=== PATIENT | male | born 1965 | race Caucasian/White ===

== ENCOUNTER 2024-11-20 15:02 | Emergency (ER) | payer OTHER ==
[~2024-11-20] VITALS: Ht 175.3 cm; Wt 84.4 kg
[2024-11-20] MEDS ORDERED: SODIUM CHLORIDE 0.9% 1,000 ML IV PRN (17:45)
[2024-11-20 17:51] LABS: BASOPHILS 0.5 % (0-2); EOSINOPHILS 0.4 % (0-6); HEMATOCRIT 47.3 % (35.0-50.0); HEMOGLOBIN 16.3 g/dL (12.0-18.0); LYMPHOCYTES 18.6 % (24-44); MCH 31.5 (27-36); MCHC 34.5 g/dl (30-36); MCV 91.3 fl (81-99); MONOCYTES 11.1 % (0-12); NEUTROPHILS 69.4 % (39-80); PLATELET COUNT 225 K/uL (140-440); RBC 5.17 M/ul (4.3-5.7); RDW 13.2 (10.5-15.0)
[2024-11-20 18:03] LABS: INR 1.09 (0.80-1.30); PROTIME 14.1 Sec (11.2-14.2)
[2024-11-20 18:05] LABS: PARTIAL THROMBOPLASTIN TIME 25.7 Sec (22.9-41.3)
[2024-11-20 18:11] LABS: ALBUMIN/GLOBULIN RATIO 1.05 (1.1-2.4); ALCOHOL, MEDICAL <3 ng/dL (<3); ALKALINE PHOSPHATASE 86 U/L (46-116); ALT (SGPT) 27 U/L (14-59); ANION GAP 12.1 (7-21); AST (SGOT) 30 U/L (15-37); BILIRUBIN, TOTAL 3.2 ng/dL (0.2-1.0); BUN/CREATININE RATIO 17.03 (6.0-28.6); CALCIUM 9.7 mg/dL (8.5-10.1); CARBON DIOXIDE 29 mmol/L (21-32); CHLORIDE 103 mmol/L (98-107); CREATININE, SERUM 1.35 mg/dL (0.70-1.30); GLOMERULAR FILTRATION RATE,EST 60 mL/min (>60); POTASSIUM 4.1 mmol/L (3.5-5.1); PROTEIN, TOTAL 7.8 g/dL (6.4-8.2); UREA NITROGEN 23 mg/dL (7-18)
[2024-11-20 20:23] VITALS: BP 125/80
--- NOTE | 2024-11-22 18:37 | EKG ---
[facility] [address] [place] [address] Signed Normal sinus rhythm Possible Right ventricular hypertrophy Abnormal ECG No previous ECGs available Confirmed by Guerrero Back MD ([id number]) on 11/22/2024 6:37:39 PM Electronically Signed By: GUERRERO BACK MD 11/22/241836 PATIENT NAME: SYLVIE PRINCE Leah Electrocardiogram DATE OF : 63 PHYSICIAN: GUERRERO BACK MD REPORT #: [id number] REPORT IS CONFIDENTIAL AND NOT TO BE RELEASED WITHOUT AUTHORIZATION
== END 2024-11-20 20:22 | disposition home or self-care (01) ==
LOC: ED 15:02
PROVIDERS: Emergency Medicine
DX: S22.32XA Fracture of one rib, left side, initial encounter for closed fracture (principal); V29.99XA Rider (driver) (passenger) of other motorcycle injured in unspecified traffic accident, initial encounter; R41.3 Other amnesia; Z88.5 Allergy status to narcotic agent
CPT/HCPCS: 36415; 70450; 70496; 70498; 71045; 71100; 80053; 80307; 82140; 84484; 85025; 85610; 85730; 93005; 93010; 99284-25; G0480; J7030; Q9967